=== PATIENT | female | born 1975 | race African-American/Black ===

== ENCOUNTER 2020-06-25 15:04 | Emergency (ER) | payer MEDICARE, MEDICAID ==
[~2020-06-25] VITALS: Ht 157.5 cm; Wt 57.0 kg
[2020-06-25 17:09] LABS: BASOPHILS % 0.3 % (0.0-2.0); EOSINOPHILS % 0.2 % (0.0-5.0); HEMATOCRIT. 26.8 % (36.0-48.0); LYMPHOCYTES % 12.7 % (20.0-50.0); MEAN CORPUSCULAR HEMOGLOBIN 28.8 pg (28.0-32.0); MEAN CORPUSCULAR VOLUME 85.2 fL (81.0-99.0); MEAN PLATELET VOLUME 8.7 fl (7.4-10.4); MONOCYTES % 8.4 % (2.0-8.0); NEUTROPHILS % 78.4 % (40.0-76.0); PLATELET 363 x1000/uL (130-400); RED BLOOD CELL COUNT 3.15 mill/uL (4.2-5.4); RED CELL DISTRIBUTION WIDTH 14.3 % (11.6-14.6)
[2020-06-25 17:26] LABS: CHLORIDE 104 mEq/L (98-107)
[2020-06-25 17:34] LABS: HCG SCREEN NEGATIVE
[2020-06-25] MEDS ORDERED: FERR325T6 MT (21:57)
[2020-06-25 22:00] VITALS: BP 113/56
== END 2020-06-25 22:16 | disposition home or self-care (01) ==
LOC: ER 15:04
DX: N92.0 Excessive and frequent menstruation with regular cycle (principal); D25.9 Leiomyoma of uterus, unspecified; I49.9 Cardiac arrhythmia, unspecified; Z98.890 Other specified postprocedural states
CPT/HCPCS: 36415; 76856; 80048; 84703; 85025; 86850; 86900; 93005; 99284

== ENCOUNTER 2020-07-06 16:02 | Inpatient (IN) | payer MEDICARE, MEDICAID ==
[~2020-07-06] VITALS: Ht 157.5 cm; Wt 45.8 kg
[~2020-07-06 16:02] MED LIST: FERR325T6 MT
[2020-07-06] MEDS ORDERED: ACETAMINOPHEN 325MG TABLET PO ONE (16:30)
[2020-07-06 17:05] LABS: BASOPHILS % 0.5 % (0.0-2.0); EOSINOPHILS % 0.7 % (0.0-5.0); LYMPHOCYTES % 15.8 % (20.0-50.0); MEAN CORPUSCULAR HEMOGLOBIN 27.5 pg (28.0-32.0); MEAN CORPUSCULAR VOLUME 83.4 fL (81.0-99.0); MEAN PLATELET VOLUME 8.1 fl (7.4-10.4); MONOCYTES % 10.9 % (2.0-8.0); NEUTROPHILS % 72.1 % (40.0-76.0); PLATELET 620 x1000/uL (130-400); RED CELL DISTRIBUTION WIDTH 15.7 % (11.6-14.6)
[2020-07-06 17:14] LABS: CHLORIDE 102 mEq/L (98-107)
[2020-07-06 17:18] LABS: HCG SCREEN NEGATIVE
[2020-07-06 17:21] LABS: HEMATOCRIT. 18.3 % (36.0-48.0)
[2020-07-06 18:58] LABS: CLARITY URINE CLEAR (CLEAR); COLOR URINE YELLOW (YELLOW); KETONES URINE TRACE (NEGATIVE); LEUKOCYTE ESTERASE URINE 1+ (NEGATIVE); NITRITE URINE NEGATIVE (NEGATIVE); OCCULT BLOOD URINE 3+ (NEGATIVE); PROTEIN URINE TRACE (NEGATIVE); SPECIFIC GRAVITY URINE 1.026 (1.005-1.030)
[2020-07-06] MEDS ORDERED: CEFTRIAXONE 1 G PREMIX 50 ML IV ONE (19:30)
[2020-07-06 22:00] VITALS: BP 128/76
[2020-07-06 22:15] VITALS: BP 128/76
[2020-07-06] MEDS ORDERED: ACETAMINOPHEN 650MG/20.3ML UDC GT PRN ×2 (22:15)
[2020-07-06] MEDS ORDERED: MAGNESIUM/ALUMINUM HYDROXIDE/SIMETHICONE 30ML UDC PO PRN (22:15)
[2020-07-06] MEDS ORDERED: CLONIDINE 0.1MG TABLET PO PRN (22:15)
[2020-07-06] MEDS ORDERED: DIPHENHYDRAMINE 50MG/ML VIAL IV PRN (22:15)
[2020-07-06] MEDS ORDERED: ACETAMINOPHEN 325MG TABLET PO PRN ×2 (22:15)
[2020-07-06] MEDS ORDERED: NA PHOS,M-B/NA PHOS,DI-BA ENEMA 118ML PR PRN (22:15)
[2020-07-06] MEDS ORDERED: ACETAMINOPHEN 650MG SUPP PR PRN ×2 (22:15)
[2020-07-07 00:06] LABS: HEMATOCRIT 24.4 % (36.0-48.0)
[2020-07-07 04:00] VITALS: BP 122/76
[2020-07-07 05:44] LABS: CHLORIDE 103 mEq/L (98-107)
[2020-07-07 05:53] LABS: HDL CHOLESTEROL 41 mg/dL (40-59)
[2020-07-07 05:54] LABS: LDL CHOLESTEROL 71 mg/dL (5-100)
[2020-07-07] MEDS: SODIUM CHLORIDE 0.9% INJ 3ML FLUSH IVF SCH ×2 (06:12→13:01)
[2020-07-07 07:03] LABS: HEMATOCRIT. 23.2 % (36.0-48.0); HEMOGLOBIN. 7.8 g/dL (12.0-16.0); MEAN CORPUSCULAR VOLUME 83.4 fL (81.0-99.0); MEAN PLATELET VOLUME 8.7 fl (7.4-10.4); PLATELET 588 x1000/uL (130-400); RED BLOOD CELL COUNT 2.78 mill/uL (4.2-5.4); RED CELL DISTRIBUTION WIDTH 15.3 % (11.6-14.6)
[2020-07-07 08:00] VITALS: BP 109/67
[2020-07-07] MEDS ORDERED: POTASSIUM CHLORIDE 20MEQ TABLET SR PO SCH (11:30)
[2020-07-07 11:45] LABS: TOTAL IRON BINDING CAPACITY 221 ug/dL (250-450)
[2020-07-07 12:00] VITALS: BP 109/69
[2020-07-07] MEDS ORDERED: IRON SUCROSE COMPLEX 100 MG/5 ML ML IV NR ×2 (12:00→12:45)
[2020-07-07 13:27] LABS: PLATELET ESTIMATE INCREASED
[2020-07-07 16:00] VITALS: BP 111/75
[2020-07-07 18:28] VITALS: BP 113/70
== END 2020-07-07 18:52 | disposition home or self-care (01) | DRG 761 ==
LOC: ER 16:11 → 6EST 18:50 → ENRESERV 20:11 → 6EST 22:29
PROVIDERS: ADMIT Family Medicine; ATTEND Family Medicine
PROC: 30233N1 Transfusion of Nonautologous Red Blood Cells into Peripheral Vein, Percutaneous Approach (ICD-10-PCS; principal; 2020-07-06)
DX: D25.9 Leiomyoma of uterus, unspecified (principal); N93.9 Abnormal uterine and vaginal bleeding, unspecified; F79 Unspecified intellectual disabilities; D50.0 Iron deficiency anemia secondary to blood loss (chronic)
CPT/HCPCS: 36415; 71045; 76856; 80053; 80061; 81003; 83540; 83550; 84703; 85014; 85018; 85025; 86850; 86900; 86920; 99285; J0696; P9016

== ENCOUNTER 2020-07-22 13:00 | Emergency (ER) | payer MEDICARE, MEDICAID ==
[~2020-07-22] VITALS: Ht 157.5 cm; Wt 50.0 kg
[2020-07-22] MEDS ORDERED: SODIUM CHLORIDE 0.9% 1,000 ML IV ONE (15:15)
[2020-07-22 15:25] LABS: BASOPHILS % 0.4 % (0.0-2.0); EOSINOPHILS % 0.6 % (0.0-5.0); HEMATOCRIT. 26.2 % (36.0-48.0); LYMPHOCYTES % 12.1 % (20.0-50.0); MEAN CORPUSCULAR HEMOGLOBIN 28.2 pg (28.0-32.0); MEAN CORPUSCULAR VOLUME 82.3 fL (81.0-99.0); MEAN PLATELET VOLUME 8.2 fl (7.4-10.4); MONOCYTES % 7.6 % (2.0-8.0); NEUTROPHILS % 79.3 % (40.0-76.0); PLATELET 473 x1000/uL (130-400); RED BLOOD CELL COUNT 3.19 mill/uL (4.2-5.4); RED CELL DISTRIBUTION WIDTH 16.4 % (11.6-14.6)
[2020-07-22 15:31] LABS: CHLORIDE 103 mEq/L (98-107)
[2020-07-22 15:43] LABS: HCG SCREEN NEGATIVE
[2020-07-22 17:32] LABS: CLARITY URINE CLEAR (CLEAR); COLOR URINE YELLOW (YELLOW); KETONES URINE NEGATIVE (NEGATIVE); LEUKOCYTE ESTERASE URINE NEGATIVE (NEGATIVE); NITRITE URINE NEGATIVE (NEGATIVE); OCCULT BLOOD URINE NEGATIVE (NEGATIVE); PROTEIN URINE NEGATIVE (NEGATIVE); SPECIFIC GRAVITY URINE 1.014 (1.005-1.030)
[2020-07-22 18:30] VITALS: BP 127/66
== END 2020-07-22 18:41 | disposition home or self-care (01) ==
LOC: ER 13:00
DX: D25.9 Leiomyoma of uterus, unspecified (principal); D64.9 Anemia, unspecified; R62.50 Unspecified lack of expected normal physiological development in childhood
CPT/HCPCS: 36415; 76856; 80053; 81003; 84703; 85025; 96360; 99284; J7030

== ENCOUNTER 2020-08-07 06:55 | Day surgery (SDC) | payer MEDICARE, MEDICAID ==
[~2020-08-07] VITALS: Ht 157.5 cm; Wt 45.8 kg
[2020-08-07 07:40] LABS: CLARITY URINE CLEAR (CLEAR); COLOR URINE YELLOW (YELLOW); KETONES URINE NEGATIVE (NEGATIVE); LEUKOCYTE ESTERASE URINE NEGATIVE (NEGATIVE); NITRITE URINE NEGATIVE (NEGATIVE); OCCULT BLOOD URINE 3+ (NEGATIVE); PROTEIN URINE NEGATIVE (NEGATIVE); SPECIFIC GRAVITY URINE 1.023 (1.005-1.030); UROBILINOGEN URINE 0.2 E.U./dL (0.2-1.0)
[2020-08-07 07:45] LABS: PARTIAL THROMBOPLASTIN TIME 29.4 sec (23.4-31.0); PROTHROMBIN TIME 11.2 sec (9.6-11.0)
[2020-08-07] MEDS ORDERED: LACTATED RINGERS 1,000 ML IV SCH (08:00)
[2020-08-07 08:10] LABS: UCG SCREEN NEGATIVE
[2020-08-07] MEDS ORDERED: FENTANYL CITRATE/PF 50MCG/ML 2ML VIAL ONE (09:11)
[2020-08-07] MEDS ORDERED: MIDAZOLAM HCL 2 MG/2 ML VIAL ONE (09:11)
[2020-08-07] MEDS ORDERED: PROPOFOL 200MG/20ML VIAL IV ONE (09:11)
[2020-08-07] MEDS ORDERED: DEXAMETHASONE 4MG/ML 1ML VIAL ONE (09:21)
[2020-08-07] MEDS ORDERED: ONDANSETRON HCL 4MG/2ML INJ ONE (09:21)
[2020-08-07] MEDS ORDERED: LABETALOL 5MG/ML SYR 20 MG/4 ML SYRINGE IV PRN (09:45)
[2020-08-07] MEDS ORDERED: HYDROMORPHONE HCL/PF 2MG/ML CPJ IV PRN (09:45)
[2020-08-07] MEDS ORDERED: MEPERIDINE HCL/PF 25MG/ML CPJ IV PRN (09:45)
[2020-08-07] MEDS ORDERED: ONDANSETRON HCL 4MG/2ML INJ IV PRN (09:45)
== END 2020-08-07 11:35 | disposition home or self-care (01) ==
LOC: OR 06:55
PROVIDERS: ATTEND Obstetrics & Gynecology Obstetrics
DX: N84.0 Polyp of corpus uteri (principal); D25.9 Leiomyoma of uterus, unspecified; Z79.899 Other long term (current) drug therapy; Z98.890 Other specified postprocedural states; Z82.49 Family history of ischemic heart disease and other diseases of the circulatory system; Z83.3 Family history of diabetes mellitus
CPT/HCPCS: 36415; 58120; 81003; 81025; 85610; 85730; 88305; J1100; J2250; J2405; J2704; J3010